=== PATIENT | female | born 1995 | race Caucasian/White ===

== ENCOUNTER 2022-05-14 15:14 | Emergency (ER) | payer BC, OTHER | END 2022-05-14 18:35 | disposition home or self-care (01) | LOC: MADERS 15:14 | DX: S16.1XXA Strain of muscle, fascia and tendon at neck level, initial encounter (principal); W55.12XA Struck by horse, initial encounter; Z79.899 Other long term (current) drug therapy | CPT/HCPCS: 70450; 72125 ==